=== PATIENT | male | born 1950 | race Caucasian/White ===

== ENCOUNTER → 2018-01-15 07:07 | Outpatient (CLI) | payer MEDICARE, BC, SELFPAY ==
[2018-01-15 10:43] LABS: Anion Gap 6 (5-15); BUN 16 mg/dL (7-18); BUN/Creat Ratio 14.8 RATIO (10-20); Calcium,Total 8.8 mg/dL (8.5-10.1); Chloride 105 mmol/L (98-107); Cholesterol 181 mg/dL (200); Creatinine, Serum 1.08 mg/dL (0.70-1.30); EST Glomerular Filtration Rate 72 mL/min (>60); Est Glom Filt Rate - Afr Amer 88 mL/min (>60); Glucose 83 mg/dL (74-106); High Density Lipoprotein 47 mg/dL; PSA,Total- Diagnostic 0.66 ng/mL (0.0-4.0); Potassium 3.9 mmol/L (3.5-5.1); Sodium Level 139 mmol/L (136-145); Triglycerides 107 mg/dL; Very Low Density Lipoprotein 21 mg/dL (5-40)
== END ==
PROVIDERS: Family Provider Family Medicine; PCP Family Medicine; Visit Provider Family Medicine
DX: C61 Malignant neoplasm of prostate (principal); I10 Essential (primary) hypertension; E78.00 Pure hypercholesterolemia, unspecified
CPT/HCPCS: 36415; 80048; 80061; 84153

== ENCOUNTER → 2018-10-31 17:23 | Outpatient (CLI) | payer MEDICARE, BC, SELFPAY ==
--- NOTE | 2018-10-31 17:41 | MRI_ITS ---
HISTORY:LEFT BICEP TEARinjury while golfing 3 weeks ago, lump anterior mid humerus is suspicious MRI of the left humerus No priors Findings: Technique: Axial T1 and STIR, sagittal T1 and coronal STIR, T1 weighted images were obtained. The study was limited with nonvisualization of the shoulder joint or the elbow joint showing its bicipital and coracoid attachment for the distal insertion on the radial tuberosity Bones: No evidence of an acute fracture. No significant marrow edema Muscles and tendons: There is a complete tear of the long head of the biceps tendon with associated muscle contusion/strain. There is flattening of the proximal tendon within the bicipital groove. I suspect there is a portion of the tendon seen on coronal image 11 series 15 proximally. It is also seen distally on image 15 series 6 coronal with a gap of approximately 9 cm. No additional muscular abnormalities are noted MRI/Upper Ext/No Jt/ wo IMPRESSION: Tear of the long head of the biceps tendon as discussed. Incomplete visualization of the shoulder and elbow There is fluid within the bicipital groove within the tendon sheath as well as a joint effusion at the shoulder joint. at 2049 Reported and signed by: Krista Tracey DO Electronically Signed: Krista Tracey DO at 20:48 EDT Tel , Service support ,
== END ==
PROVIDERS: Family Provider Family Medicine; PCP Family Medicine; Referring Provider Family Medicine; Visit Provider Family Medicine
DX: S46.212A Strain of muscle, fascia and tendon of other parts of biceps, left arm, initial encounter (principal); X58.XXXA Exposure to other specified factors, initial encounter; Y93.9 Activity, unspecified; Y92.9 Unspecified place or not applicable; Y99.9 Unspecified external cause status
CPT/HCPCS: 73218

== ENCOUNTER → 2019-01-24 07:02 | Outpatient (CLI) | payer MEDICARE, BC, SELFPAY ==
[2019-01-24 10:25] LABS: Anion Gap 6 (5-15); BUN 18 mg/dL (7-18); Calcium,Total 8.6 mg/dL (8.5-10.1); Chloride 108 mmol/L (98-107); Cholesterol 164 mg/dL (200); EST Glomerular Filtration Rate 79 mL/min (>60); Est Glom Filt Rate - Afr Amer 95 mL/min (>60); Glucose 85 mg/dL (74-106); High Density Lipoprotein 48 mg/dL; PSA,Total- Diagnostic 0.88 ng/mL (0.0-4.0); Potassium 4.3 mmol/L (3.5-5.1); Sodium Level 142 mmol/L (136-145); Triglycerides 70 mg/dL; Very Low Density Lipoprotein 14 mg/dL (5-40)
== END ==
PROVIDERS: Family Provider Family Medicine; PCP Family Medicine; Referring Provider Family Medicine; Visit Provider Family Medicine
DX: I10 Essential (primary) hypertension (principal); E78.00 Pure hypercholesterolemia, unspecified; C61 Malignant neoplasm of prostate
CPT/HCPCS: 36415; 80048; 80061; 84153

== ENCOUNTER 2019-06-28 07:00 | Outpatient (RCR) | payer MEDICARE, BC, SELFPAY ==
--- NOTE | 2019-05-31 07:54 | HP.PTEVAL_ITS ---
Patient's Visit Information ABAD FLORES is a 69 year old M referred to Physical Therapy by Mack Wynn MD with a diagnosis of L shoulder rot cuff. Date of Evaluation: 05/31/19 Physical Therapist: Siva Lugo PT, ATC - Visit Plan Frequency: 2x /Week Duration: 4-6 Weeks Plan: L shoulder strengthening (rot cuff), scap stab ex's, UBE, and HEP - Subjective Findings: Pt reports he has had L shoulder pain for greater than 15 years. Pt reports he has a compleate tear in his L biceps tendon, and notes this is what he believes has caused his L rotator cuff problem. 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 No L UE tingling or numbness. No sleep difficulty secondary to pain, although he notes it is difficult to find a c omfortable position at times. Pt is R hand dominant. Pt reports he has difficulty with reaching across his body and overhead secondary to pain. No Dx tests recently. 1/10 pain at rest, 10/10 at worst, which is rare. Pt is an avid golfer in the summer. - Pain L Shoulder pain Pain Intensity (Out of 10): 1 Pain Intensity Range: 10 - Objective Neuro: B UE sensation is WNL to light touch. B bicepital reflex= 2/3. ROM: R shoulder flex= 160, abd= 160, ER= 15, IR WNL; L shoulder flex= 150, abd= 150, ER= 40, IR WNL. Palpation: Pt is sore throughout the distribution of the supraspinatus tendon. No obvious deformity present at this time. MMT: B shoulder abd and IR= 5/5. L shoulder flex= 4-/5. B shoulder ER= 3/5. Special tests: Positive empty can test - Goals Goal 1:: Decrease L shoulder pain x 50% to aid with IADL's Goal Time Frame: 4-6 Weeks Goal 2:: Increase L shoulder strength x 1 grade to aid with return to sport without limitation Goal Time Frame: 4-6 Weeks Goal 3:: I with HEP Goal Time Frame: 4-6 Weeks - Rehabilitation Potential Physical Therapy Diagnosis: L shoulder pain, weakness, and limited ROM secondary to L rotator cuff strain. Rehabilitation Potential: Good - Anticipated Interventions Patient/Client Instruction: Educate patient on: Condition, Plan of Care For the Purpose of:: To improve self management Therapeutic Exercise to Include: Strength training, Endurance training, Body mechanics, Active ROM, Scapular Strength/Stabilization For the Purpose of:: To decrease pain, To improve muscle performance and motor function, To increase tolerance to activity/condition/position Cryotherapy (ice pack, ice massage): Yes For the Purpose of:: To decrease pain Thank you for the opportunity to evaluate your patient. For Medicare and Medicare HMO plans, please review the plan of care and approve it. It will need to be FAXED BACK to us at [phone] for Medicare purposes. For Medicare only, by signing this I certify the plan of care. Please let me know if there are questions or concerns regarding this plan of care. Physician Signature: Date:
--- NOTE | 2019-06-28 07:26 | HP.PTDCSUM ---
HP - PT D/C Summary It has been my pleasure to treat ABAD FLORES under orders from Mack Wynn MD, for the diagnosis of L shoulder rot cuff for a total of 9 visit(s). Discharge Date: Please see the following information for a summary of their discharge status. - Subjective Subjective: Pt reports he has definitely made improvements - Pain L Shoulder pain Pain Intensity (Out of 10): 0 - Objective Objective/Function: L shoulder pain 0/10, increases to 3/10 at worst. L shoulder ROM: flex= 165, abd= 155, ER= 45. L shoulder MMT: IR 08/26. All other measurements . Pt is I with HEP - Goals Goal 1:: Decrease L shoulder pain x 50% to aid with IADL's Goal Progress: Goal Met Goal 2:: Increase L shoulder strength x 1 grade to aid with return to sport without limitation Goal Progress: Progressing Goal 3:: I with HEP Goal Progress: Goal Met - Plan Plan: L shoulder strengthening (rot cuff), scap stab ex's, UBE, and HEP - D/C Information If there are questions or concerns regarding this patient's physical therapy, please feel free to call me at [phone]. Thank you for the referral of this patient. Sincerely, Siva Lugo, PT, ATC
== END 2019-06-28 19:00 | disposition home or self-care (01) ==
LOC: PT 07:00
PROVIDERS: PCP Family Medicine; Referring Provider Family Medicine; Visit Provider Family Medicine
DX: S46.012D Strain of muscle(s) and tendon(s) of the rotator cuff of left shoulder, subsequent encounter (principal); S46.212D Strain of muscle, fascia and tendon of other parts of biceps, left arm, subsequent encounter
CPT/HCPCS: 97110; 97161; 97164

== ENCOUNTER → 2019-08-19 07:03 | Outpatient (CLI) | payer MEDICARE, BC, SELFPAY ==
[2019-08-19 10:23] LABS: Cholesterol 123 mg/dL (200); High Density Lipoprotein 47 mg/dL; PSA,Total- Diagnostic 1.14 ng/mL (0.0-4.0); Triglycerides 63 mg/dL; Very Low Density Lipoprotein 13 mg/dL (5-40)
== END ==
PROVIDERS: PCP Family Medicine; Referring Provider Family Medicine; Visit Provider Family Medicine
DX: C61 Malignant neoplasm of prostate (principal); E78.00 Pure hypercholesterolemia, unspecified
CPT/HCPCS: 36415; 80061; 84153

== ENCOUNTER → 2019-08-30 12:41 | Outpatient (CLI) | payer MEDICARE, BC, SELFPAY ==
--- NOTE | 2019-08-30 12:45 | CT_ITS ---
STUDY: CT ABDOMEN AND PELVIS WITH CONTRAST REASON FOR EXAM: Male, 69 years old. PROSTATE CA IN 2004, PROSTATECTOMY, RISING PSA RADIATION DOSAGE (If Supplied By Facility): CTDIvol = ( 14.15 ) mGy, DLP = ( 925.03 ) mGycm TECHNIQUE: Transaxial images were obtained from the dome of the diaphragm to the symphysis pubis without oral contrast. Oral and amp; IV Readi-CAT and amp; 100mL Isovue-300 was administered. Sagittal and coronal images were reconstructed. Individualized dose optimization techniques were used for this CT. COMPARISON: None. FINDINGS: Minimal linear scar at the right lung base. The visualized portions of the heart are within normal limits. There is decreased attenuation of the liver consistent with steatosis. There is a 5.3 mm cyst in the medial aspect of the right lobe of the liver. Tiny cysts are also seen in the inferior aspect of the right lobe of the liver. Normal gallbladder and extrahepatic biliary system. Normal spleen. Normal pancreas. Normal bilateral adrenal glands. Normal right kidney. Normal left kidney. Normal visualized stomach. Normal small intestine. Normal colon. The appendix is visualized and appears normal. There is diffuse atherosclerotic calcification of the abdominal aorta, without a demonstrated aneurysm. Normal inferior vena cava. There is borderline retroperitoneal lymphadenopathy with enlarged nodes no greater than 10mm in the short axis diameter. Normal urinary bladder. The patient is status post prostatectomy. There is a small umbilical hernia containing fat. A mesh is seen in the lower anterior abdomen/pelvic wall from prior hernia repair. There are mild degenerative changes of the visualized lumbar spine. Degenerative changes of the sacroiliac joints bilaterally slightly more prominent on the right side. CT/Abdomen/Pelvis WITH Contrast IMPRESSION: Fatty infiltration liver. Scattered small cysts in the liver. Electronically Signed: Abhijit Dyer, at 13:25 EDT , Service support ,
[2019-08-30 13:01] LABS: CREATININE FINGERSTICK 1.4 mg/dL (0.70-1.30)
== END ==
PROVIDERS: PCP Family Medicine; Referring Provider Urology; Visit Provider Urology
DX: C61 Malignant neoplasm of prostate (principal)
CPT/HCPCS: 74177; Q9967

== ENCOUNTER → 2019-09-04 10:05 | Outpatient (CLI) | payer MEDICARE, BC, SELFPAY ==
--- NOTE | 2019-09-04 10:09 | NM_ITS ---
CLINICAL: 69-year-old male with reported history of carcinoma of the prostate. WHOLE BODY 99m Tc MDP RADIONUCLIDE BONE SCINTIGRAPHY COMPARISON: CT of the abdomen-pelvis report 08/30/2019 FINDINGS: Following the intravenous administration of approximately 25.0 mCi of 99m Tc MDP, whole body bone images reveal: 1. Increased radiopharmaceutical concentration is identified in the mid cervical spine posteriorly on the left and right, lower cervical spine posteriorly on the right, glenohumeral and acromioclavicular compartments of both shoulders, bilateral wrist articulations, right-left knees, both ankles, the right midfoot, the right hip involving the superior acetabulum. 2. The remaining skeletal structures are scintigraphically unremarkable with normal-appearing renal images and urinary bladder activity identified. There is calcification of the bilateral costochondral junction. Increased uptake is defined in the bilateral maxilla and inter-orbital aspect of the calvarium most consistent with periostitis. NM/Bone Scan Whole Body IMPRESSION: 1. The increase in radiopharmaceutical concentration identified in the cervical spine, right-left shoulder and wrist articulations, knees bilaterally, right-left ankles, right midfoot, the right hip is most consistent with degenerative arthritis. 2. There is no definitive typical scintigraphic evidence of diffuse axial skeletal metastatic disease on the current examination. Electronically Signed: Ean Denney DO at 23:00 EDT Tel , Service support ,
== END ==
PROVIDERS: PCP Family Medicine; Referring Provider Urology; Visit Provider Urology
DX: C61 Malignant neoplasm of prostate (principal)
CPT/HCPCS: 78306

== ENCOUNTER → 2020-01-07 07:51 | Outpatient (CLI) | payer MEDICARE, BC, SELFPAY ==
[2020-01-07 10:31] LABS: PSA,Total- Diagnostic 1.48 ng/mL (0.0-4.0)
[2020-01-07 10:40] LABS: AST(SGOT) 12 U/L (15-37); Alanine Aminotransfer ALT/SGPT 25 U/L (16-61); Albumin, Serum 3.8 g/dL (3.2-5.0); Alkaline Phosphatase 63 U/L (45-117); Anion Gap 4 (5-15); BUN 15 mg/dL (7-18); BUN/Creat Ratio 14.9 RATIO (10-20); Calcium,Total 8.8 mg/dL (8.5-10.1); Chloride 104 mmol/L (98-107); Cholesterol 127 mg/dL (200); Creatinine, Serum 1.01 mg/dL (0.70-1.30); EST Glomerular Filtration Rate 78 mL/min (>60); Est Glom Filt Rate - Afr Amer 94 mL/min (>60); Globulin 3.7 g/dL (2.2-4.2); Glucose 93 mg/dL (74-106); High Density Lipoprotein 50 mg/dL; Potassium 3.8 mmol/L (3.5-5.1); Protein, Total 7.5 g/dL (6.4-8.2); Sodium Level 137 mmol/L (136-145); Triglycerides 92 mg/dL; Very Low Density Lipoprotein 18 mg/dL (5-40)
== END ==
LOC: LAB.FUTURE 07:52 → MTLAB 08:01
PROVIDERS: PCP Family Medicine; Referring Provider Urology; Visit Provider Urology
DX: I10 Essential (primary) hypertension (principal); C61 Malignant neoplasm of prostate
CPT/HCPCS: 36415; 80053; 80061; 84153

== ENCOUNTER → 2020-02-11 14:01 | Outpatient (CLI) | payer MEDICARE, BC, SELFPAY ==
--- NOTE | 2020-02-11 13:30 | PET_ITS ---
EXAMINATION: 18F Fluciclovine PET/CT CLINICAL HISTORY: A 70-year-old male with reported history of carcinoma of the prostate presenting for restaging examination. COMPARISON EXAMINATION: Whole body bone scintigraphy report dated 09/04/2019, CT of the abdomen and pelvis report dated 08/30/2019 PROCEDURE: The patient received an intravenous bolus injection of 11.66 mCi of Axumin (fluciclovine F-18) via the right forearm antecubital fossa, on the imaging table with the patient in the supine position followed by an intravenous normal saline flush. The patient in the supine position with arms above the head, CT scan for attenuation correction was performed immediately following the bolus injection and left up for 1-2 minutes. The PET scan acquisition was begun within 3-5 minutes following injection from mid thigh to the base of the skull. The total scan time was registered between 20-30 minutes. Axumin (fluciclovine F-18) injection is indicated for positron emission tomography PET imaging in men with suspected prostate cancer recurrence based on elevation of the serum prostatic surface antigen (PSA) levels following prior treatment intervention. HEIGHT: 69 inches. WEIGHT: 172 lbs. SUV reference values: LIVER BLOOD POOL SUV: 8.7 BLOOD POOL: 1.2 BONE MARROW: 3.4 FINDINGS: Head/Neck: Symmetric radiopharmaceutical concentration is defined in the bilateral pterygoid and masseter musculature consistent with physiologic uptake. CHEST: There is no quantitative scintigraphic evidence of abnormal increased metabolism within the context of the bilateral hemithorax pulmonary parenchyma, right and left hemithoracic pleural interface, mediastinal structures and thoracic perihilum. Linear tracer distribution is defined in the proximal-distal esophagus most consistent with physiologic radiopharmaceutical uptake. There is visualization of the left ventricular myocardium. Pertinent chest CT findings are as follows. There are no parenchymal densities-nodules defined in the right and left hemithorax with discernible increased radiopharmaceutical concentration. Right and left axillary soft tissue densities with fatty hilus are ametabolic. There is atherosclerotic calcification defined in the thoracic aorta without evidence of dilatation-aneurysm formation. Abdomen/Pelvis: Normal physiologic distribution of the radiopharmaceutical is apparent in the hepatic and splenic parenchyma, pancreas, pancreatic head-tail, both renal units, bladder and visualized intestinal tract. Pertinent abdomen and pelvis CT findings are as follows. There is atherosclerotic calcification defined in the abdominal aorta without evidence of dilatation-aneurysm formation. Pelvic arterial calcification is defined. Postsurgical changes are visualized in the mid-lower anterior pelvic wall. The prostate gland appears surgically absent. A small fat containing left inguinal hernia is noted. Right and left inguinal soft tissue densities with fatty hilus formation reveal no evidence of significant increased 18F fluciclovine uptake. Skeletal: Degenerative changes are noted in the cervical, thoracic and lumbar spine. There is evidence of an apparent vertebral hemangioma noted at the level of the fourth thoracic vertebra. PET/PET/CT Tumor Base -Thigh Subs IMPRESSION: 1. NEGATIVE EXAMINATION. There is no definitive quantitative-qualitative visual scintigraphic evidence of fluciclovine avid viable neoplasm. (Keon et al, J Nucl Med Mol Imag 55: 1986, 2014). Electronic Signature Ean Denney D.O. Electronically Signed: Ean Denney DO at 22:35 EDT Tel , Service support ,
== END ==
PROVIDERS: PCP Family Medicine; Referring Provider Radiology Radiation Oncology; Visit Provider Radiology Radiation Oncology
DX: C61 Malignant neoplasm of prostate (principal); R97.20 Elevated prostate specific antigen [PSA]
CPT/HCPCS: 78815; A9552

== ENCOUNTER 2020-02-14 08:49 | Day surgery (SDC) | payer MEDICARE, BC, SELFPAY ==
[2020-02-14 09:17] VITALS: BP 129/80; PULSE 91; RESP 16; TEMP 36.9; O2SAT 97; BMI 24.7
[2020-02-14] MEDS: Lactated Ringers 1,000 ML 100 ML IV (09:38)
[2020-02-14] MEDS: Cefazolin 2 GM in 0.9% Normal Saline 100 ML IV (10:32)
--- NOTE | 2020-02-14 10:32 | PCM.HP.STD ---
History of Present Illness Date of Admission: 02/14/20 Chief Complaint: Recurrent prostate cancer The patient is a 70 year old male with a history of radical prostatectomy in the past he has had biochemical recurrence of disease with rising PSA working to proceed with treatment with salvage radiation therapy plus hormone deprivation therapy for 6 months. Past Medical History Allergies amoxicillin Allergy (Verified 02/14/20 09:16) Rash bee venom protein (honey bee) Allergy (Verified 02/14/20 09:16) Hives lactose Allergy (Verified 02/14/20 09:16) Diarrhea Sulfa (Sulfonamide Antibiotics) Allergy (Verified 02/14/20 09:16) PT UNSURE OF REACTION Home Medications: Ambulatory Orders Medication Instructions Recorded Aspirin E.C. [Ecotrin] 81 mg PO SUWE 02/05/20 Atorvastatin Calcium [Lipitor] 20 mg PO QHS 02/05/20 Lactase [Dairy Digestive] 9,000 unit PO PRN PRN 02/05/20 Lisinopril/Hydrochlorothiazide 1 ea PO DAILY 02/05/20 [Lisinopril-Hctz 10-12.5 mg Tab] Surgical History: no surgical history Smoking Status: Former smoker Tobacco Use: Non-smoker Review of Systems Constitutional: Denies: Chills, Fever, Weight Change HEENT: Denies: Head Aches, Sinus Congestion, Sinus Drainage Cardiovascular: Denies: Chest Pain, Palpitations Respiratory: Denies: Cough, Shortness of breath at rest, Sputum production Gastrointestinal: Denies: Abdominal Pain, Nausea, Vomiting Genitourinary: Denies: Dysuria Musculoskeletal: Denies: Joint Pain, Joint Tenderness Skin: Denies: Rash, Wounds Neurological: Denies: Numbness, Tingling, Focal weakness Psychiatric: Denies: Anxiety, Depression, Homicidal Ideations, Suicidal Ideations Hematologic/ Lymphatic: Denies: Easy Bruising, Easy Bleeding VTE Information - Inpt Only VTE Present on Admission: No - Physical Exam Vitals/I&O's: Vital Signs Temp Pulse Resp BP Pulse Ox 98.5 F 91 16 129/80 H 97 02/14/20 09:17 02/14/20 09:17 02/14/20 09:17 02/14/20 09:17 02/14/20 09:17 Oxygen Delivery Method Room Air Weight: 76 kg Body Mass Index (BMI) 24.7 General: Alert, Oriented x3, Cooperative HEENT: Atraumatic, PERRLA, EOMI, Normocephalic Neck: Supple, No JVD, Negative Carotid Bruits Lungs: Clear to auscultation, Normal air movement Cardiovascular: Regular rate, No murmurs Abdomen: Bowel Sounds Present, Soft, Non Tender Extremities: No edema, Capillary Refill Less than 3 Seconds Skin: No rashes, No breakdown Musculoskeletal: No Tenderness to Palpation of Joints or Extremities Neurological: Cranial nerves II-XII grossly intact Psych/Mental Status: Normal Affect, Appropriate Current Medications Cefazolin Sodium 2 gm/ Sodium (Chloride) 110 mls @ 150 mls/hr IV PREOP ONE Stop: 02/14/20 11:43 Lactated Ringer's () 1,000 mls @ 100 mls/hr IV .Q10H GEOFF Last Admin: 02/14/20 09:38 Dose: 100 mls/hr Documented by: Assessment/Plan 70-year-old male with recurrent prostate cancer plan to proceed with salvage radiation therapy plus hormone therapy he is good to get the gold markers placed today.
--- NOTE | 2020-02-14 10:34 | DCINST_ITS ---
Discharge Diet: Light diet - advance as tolerated Discharge Activity: Return to Normal Activity Allergies/Adverse Reactions: Allergies amoxicillin Allergy (Verified 02/14/20 09:16) Rash bee venom protein (honey bee) Allergy (Verified 02/14/20 09:16) Hives lactose Allergy (Verified 02/14/20 09:16) Diarrhea Sulfa (Sulfonamide Antibiotics) Allergy (Verified 02/14/20 09:16) PT UNSURE OF REACTION Medications to take at Discharge Aspirin E.C. [Ecotrin] 81 mg PO SUWE 02/05/20 Atorvastatin Calcium [Lipitor] 20 mg PO QHS 02/05/20 Lactase [Dairy Digestive] 9,000 unit PO PRN PRN 02/05/20 Lisinopril/Hydrochlorothiazide [Lisinopril-Hctz 10-12.5 mg Tab] 1 ea PO DAILY 02/05/20 Primary Care Physician: Mack Wynn MD [Primary Care Provider] - Test Results: Test results from this visit will be discussed in further detail at your follow- up appointment, if applicable. Please Follow Up With: Eleno Fagan MD When: keep appt for follow up
--- NOTE | 2020-02-14 10:46 | PCM.OPRPT ---
Report of Operation Date of Procedure: 02/14/20 Pre-Operative Diagnosis: Recurrent prostate cancer Post-Operative Diagnosis: Same Surgery/Procedure Performed:: transrectal ultrasound-guided placement of gold fiducial markers Description of Surgical Findings:: 70-year-old male was taken back to the operating room at the smooth induction of anesthesia he was placed in dorsolithotomy position. The perineum and testicles are prepped and draped in usual sterile fashion. Ultrasound probe into the rectum performed ultrasonography. The prostate was missing there is no obvious masses on exam is no palpable masses I then deployed 3 gold markers into the perirectal space 1 on the right side one on the left side and 1 below the bladder in the midline. Once all 3 gold markers were placed for marking the patient was taken position taken back to PACU in good condition he is can proceed with salvage radiation therapy. Type of Anesthesia:: General - Admit VTE Documentation VTE Present on Admission: No VTE Mechan Device Prophylaxis: SCD's
[2020-02-14 10:52] VITALS: BP 129/80; BP 88/61; PULSE 80; RESP 16; TEMP 36.5; O2SAT 94
[2020-02-14 10:55] VITALS: BP 129/80; BP 93/60; PULSE 79; RESP 16; O2SAT 95
[2020-02-14 11:00] VITALS: BP 129/80; BP 96/70; PULSE 77; RESP 16; O2SAT 94
[2020-02-14 11:05] VITALS: BP 129/80; BP 98/73; PULSE 78; RESP 16; TEMP 36.6; O2SAT 93
[2020-02-14 11:49] VITALS: BP 129/80
== END 2020-02-14 11:55 | disposition home or self-care (01) ==
LOC: SDC 08:49 → AC 08:50
PROVIDERS: Anesthesiology; PCP Family Medicine; Referring Provider Urology; Visit Provider Urology
PROC: (CPT 55874; principal; 2020-02-14 10:45)
DX: C61 Malignant neoplasm of prostate (principal); R97.21 Rising PSA following treatment for malignant neoplasm of prostate; I10 Essential (primary) hypertension; E78.00 Pure hypercholesterolemia, unspecified; Z79.82 Long term (current) use of aspirin; Z79.899 Other long term (current) drug therapy; Z87.891 Personal history of nicotine dependence; Z20.828 Contact with and (suspected) exposure to other viral communicable diseases
CPT/HCPCS: 00902; 55876; 76942; 87635; C9803; J7120; J2405; U0003

== ENCOUNTER → 2020-02-27 13:43 | Outpatient (CLI) | payer MEDICARE, BC, SELFPAY ==
[2020-02-14 09:17] VITALS: BMI 24.7
[2020-02-27 15:30] LABS: Absolute Lymphocyte Count 1.62 X10^3/uL (0.83-4.51); Absolute Neutrophil Count 8.2 X10^3/uL (2.0-7.7); Basophil# 0.08 X10^3/uL; Basophil% 0.7 % (0-1); Eosinophil# 0.09 X10^3/uL; Eosinophils% 0.8 % (0-5); Hemoglobin 15.3 g/dL (13.0-16.5); Lymphocyte # 1.62 X10^3/ul (4.0); Lymphocyte % 15.2 % (19-41); Mean Corp Hgb Conc 33.3 g/dL (32-36); Mean Corpuscular Hgb 30.4 pg (27.0-32.0); Mean Corpuscular Volume 91.5 fL (80-94); Monocyte# 0.67 X10^3/uL; Monocyte% 6.3 % (0-10); NRBC Flagged by Analyzer 0 % (0-5); Neutrophil # 8.16 X10^3/uL (2.7-7.7); Neutrophil % 76.4 % (47-70); Platelet Count 339 K/mm3 (150-450); RBC Distribution Width CV 11.6 % (11.6-14.6); RBC Distribution Width SD 39.3 fl (35.1-43.9); Red Blood Count 5.03 M/mm3 (4.6-6.2); White Blood Count 10.7 K/mm3 (4.4-11.0)
[2020-02-27 16:17] LABS: Creatinine, Serum 1.02 mg/dL (0.70-1.30); EST Glomerular Filtration Rate 77 mL/min (>60); Est Glom Filt Rate - Afr Amer 93 mL/min (>60)
== END ==
PROVIDERS: PCP Family Medicine; Referring Provider Radiology Radiation Oncology; Visit Provider Radiology Radiation Oncology
DX: Z01.812 Encounter for preprocedural laboratory examination (principal); C61 Malignant neoplasm of prostate
CPT/HCPCS: 36415; 82565; 85025

== ENCOUNTER → 2020-02-28 12:28 | Outpatient (CLI) | payer MEDICARE, BC, SELFPAY ==
[2020-02-14 09:17] VITALS: BMI 24.7
--- NOTE | 2020-02-28 12:30 | CT_ITS ---
STUDY: CT PELVIS WITH CONTRAST REASON FOR EXAM: Male, 70 years old. Prostate cancer radiation planning. Prior prostate removal, appendectomy, hernia x 3, hypertension. RADIATION DOSAGE (If Supplied By Facility): CTDIvol = ( 24.42 ) mGy, DLP = ( 745.69 ) mGycm TECHNIQUE: Transaxial imaging of the pelvis was performed without oral contrast. Oral and amp; IV READII-CAT and amp; 100ML ISOVUE 300 was administered intravenously. Individualized dose optimization techniques were used for this CT. COMPARISON: Comparison is made with prior study dated 08/30/2019. FINDINGS: Normal urinary bladder. Without radiation seeds are seen within the prostate. Normal visualized small intestine. There are scattered colonic diverticula of the sigmoid colon consistent with chronic diverticulosis. There is no pelvic fluid. There is no pelvic lymphadenopathy or mass lesion. There is diffuse atherosclerotic calcification of the pelvic arteries. Small umbilical hernia containing fat. There is evidence of prior repair of a low anterior abdominal wall hernia. There are diffuse degenerative changes of the visualized lumbar spine. CT/CT Pelvis W/CONT Therapy IMPRESSION: Metallic radiation seeds are seen within the prostate. The remainder of the examination is unchanged. Electronically Signed: Abhijit Dyer, at 14:24 EST , Service support ,
== END ==
PROVIDERS: PCP Family Medicine; Referring Provider Radiology Radiation Oncology; Visit Provider Radiology Radiation Oncology
DX: C61 Malignant neoplasm of prostate (principal)
CPT/HCPCS: 51600; 72193; Q9965; Q9967

== ENCOUNTER → 2020-03-26 09:37 | Outpatient (CLI) | payer MEDICARE, BC, SELFPAY ==
[2020-03-26 12:25] LABS: Absolute Neutrophil Count 4.3 X10^3/uL (2.0-7.7); Basophil# 0.04 X10^3/uL; Basophil% 0.7 % (0-1); Eosinophil# 0.08 X10^3/uL; Eosinophils% 1.4 % (0-5); Hematocrit 44.5 % (40-54); Hemoglobin 15.5 g/dL (13.0-16.5); Lymphocyte % 10.8 % (19-41); Mean Corp Hgb Conc 34.8 g/dL (32-36); Mean Corpuscular Hgb 31.4 pg (27.0-32.0); Mean Corpuscular Volume 90.1 fL (80-94); Mean Platelet Vol. 9.1 fl (6.2-12.0); Monocyte# 0.51 X10^3/uL; Monocyte% 9.2 % (0-10); NRBC Flagged by Analyzer 0 % (0-5); Neutrophil # 4.31 X10^3/uL (2.7-7.7); Neutrophil % 77.5 % (47-70); POSITIVE DIFFERENTIAL YES; Platelet Count 237 K/mm3 (150-450); RBC Distribution Width CV 11.9 % (11.6-14.6); RBC Distribution Width SD 38.6 fl (35.1-43.9); Red Blood Count 4.94 M/mm3 (4.6-6.2); White Blood Count 5.6 K/mm3 (4.4-11.0)
[2020-03-26 12:45] LABS: Differential Indicated SCAN CRITERIA MET
[2020-03-26 13:25] LABS: Differential Comment SCANNED; Platelet Estimate ADEQUATE (ADEQ); Red Cell Morphology NORM C+C NORMAL (NORM C&C)
== END ==
PROVIDERS: PCP Family Medicine; Referring Provider Radiology Radiation Oncology; Visit Provider Radiology Radiation Oncology
DX: C61 Malignant neoplasm of prostate (principal)
CPT/HCPCS: 36415; 85025

== ENCOUNTER → 2020-04-14 09:50 | Outpatient (CLI) | payer MEDICARE, BC, SELFPAY ==
[2020-04-14 12:32] LABS: Absolute Lymphocyte Count 0.26 X10^3/uL (0.83-4.51); Absolute Neutrophil Count 4.4 X10^3/uL (2.0-7.7); Basophil# 0.04 X10^3/uL; Basophil% 0.8 % (0-1); Eosinophil# 0.05 X10^3/uL; Eosinophils% 0.9 % (0-5); Hematocrit 43.2 % (40-54); Hemoglobin 14.6 g/dL (13.0-16.5); Lymphocyte # 0.26 X10^3/ul (4.0); Lymphocyte % 4.9 % (19-41); Mean Corp Hgb Conc 33.8 g/dL (32-36); Mean Corpuscular Hgb 30.4 pg (27.0-32.0); Monocyte# 0.46 X10^3/uL; Monocyte% 8.7 % (0-10); NRBC Flagged by Analyzer 0 % (0-5); Neutrophil # 4.44 X10^3/uL (2.7-7.7); Neutrophil % 83.9 % (47-70); POSITIVE DIFFERENTIAL YES; Platelet Count 272 K/mm3 (150-450); RBC Distribution Width SD 39.8 fl (35.1-43.9); White Blood Count 5.3 K/mm3 (4.4-11.0)
[2020-04-14 12:33] LABS: Differential Indicated SCAN CRITERIA MET
[2020-04-14 13:31] LABS: Differential Comment SCANNED
== END ==
PROVIDERS: PCP Family Medicine; Referring Provider Radiology Radiation Oncology; Visit Provider Radiology Radiation Oncology
DX: C61 Malignant neoplasm of prostate (principal)
CPT/HCPCS: 36415; 85025

== ENCOUNTER 2020-06-22 10:26 | Outpatient (RCR) | payer MEDICARE, BC, SELFPAY | END 2020-06-22 23:59 | LOC: IMMUN 10:26 | PROVIDERS: PCP Family Medicine; Visit Provider Family Medicine | DX: Z23 Encounter for immunization (principal) | CPT/HCPCS: 0011A; 0012A ==

== ENCOUNTER → 2020-08-18 10:00 | Outpatient (CLI) | payer MEDICARE, BC, SELFPAY | PROVIDERS: PCP Family Medicine; Referring Provider Urology; Visit Provider Urology | DX: C61 Malignant neoplasm of prostate (principal) | CPT/HCPCS: 36415; 84153 ==

== ENCOUNTER 2020-09-30 08:47 | Emergency (ER) | payer MEDICARE, BC, SELFPAY ==
[2020-09-30 08:48] VITALS: BP 134/74; PULSE 66; RESP 18; TEMP 35.7; O2SAT 98; BMI 25.2
--- NOTE | 2020-09-30 09:04 | EKG12_ITS ---
Test Reason : DIZZINESS Blood Pressure : / mmHG Vent. Rate : 068 BPM Atrial Rate : 068 BPM P-R Int : 200 ms QRS Dur : 090 ms QT Int : 416 ms P-R-T Axes : 070 065 047 degrees QTc Int : 442 ms Normal sinus rhythm Normal ECG Confirmed by ALLY LA, ASHLYN ([id number]), photography editor JAZIEL PURCELL ([id number]) on 10/02/2020 8:35:20 AM Referred By: JAIME Confirmed By:ASHLYN CANALES MD
--- NOTE | 2020-09-30 09:07 | EX.ED.DYSGE1 ---
HPI History of Present Illness Chief Complaint: Dizziness Detail of Chief Complaint: Sudden onset of dizziness approximately 7:30 AM Informant: patient Narrative Narrative: Patient presents with dizziness that started around 7:30 AM while he was in the office working on the computer. Patient got acutely nauseated and did vomit x1. Patient states that symptoms seem to be improved at this time but worse with standing and also worse with movement of head. No history of vertigo. No falls or head injuries. He denies headache. He denies recent illness. He denies chest pain or shortness of breath. Prior similar symptoms: No PFSH PFSH Medical History (Updated 09/30/20 @ 11:[address] Luciano Beckford, DO) History of prostate cancer Hyperlipemia Hypertension Home Medications aspirin 81 mg PO SUWE 02/05/20 [History Last Taken Unknown] atorvastatin 20 mg PO QHS 02/05/20 [History Last Taken 02/14/20 04:45 20 MG] lisinopril-hydrochlorothiazide 1 tab PO DAILY 09/30/20 [History Last Taken Unknown] meclizine 25 mg PO TID PRN #20 tab 09/30/20 [Rx Last Taken Unknown] Allergy/AdvReac Type Severity Reaction Status Date / Time amoxicillin Allergy Rash Verified 09/30/20 08:47 bee venom protein (honey bee) Allergy Hives Verified 09/30/20 08:47 lactose Allergy Diarrhea Verified 09/30/20 08:47 Sulfa (Sulfonamide Allergy PT UNSURE Verified 09/30/20 08:47 Antibiotics) OF REACTION Surgical History (Updated 09/30/20 @ 09:03 by Riana Betancur) History of hernia repair History of prostatectomy Social History Smoking Status: Former smoker ROS ROS ED Constitutional Constitutional ED: Reports systems reviewed and no addt'l complaints, except as documented; Denies body ache(s), change in weight or chills Eyes Eyes: Denies acute decrease in peripheral vision, change in vision, double vision or loss of vision ENT ENT ED: Reports none; Denies ear pain, lip swelling, loss taste/smell, neck pain, otalgia or sore throat Cardiovascular Cardiovascular: Reports none; Denies abdominal pain, chest pain with activity, leg edema, lightheadedness, palpitations, rapid heart rate or syncope Respiratory/Chest Respiratory/Chest: Reports none; Denies change in mental status, dry cough, dyspnea, hemoptysis, shortness of breath at rest or shortness of breath with exertion Gastrointestinal Gastrointestinal: Reports none, nausea and vomiting; Denies abdominal pain, change in stool character, diarrhea, hematemesis, hematochezia, melena or rectal bleeding Genitourinary Genitourinary ED: Reports none; Denies abdominal discomfort, anuria, dysuria, genital pain or polyuria Musculoskeletal Musculoskeletal: Reports none; Denies arthralgias, back pain, difficulty walking, extremity pain, muscle weakness or myalgias Integumentary Reports none; Denies abscess or rash Neurologic Neurologic: Reports none and other Details: Dizziness ; Denies abnormal gait, confusion, focal weakness, frequent falls, headache(s), loss of vision, numbness, paresthesias, radicular pain, vertigo or weakness Psychiatric Psychiatric: Reports systems reviewed and no addt'l complaints, except as documented and none; Denies behavioral changes, confusion, difficulty concentrating, hallucinations, suicidal ideation, tactile hallucinations or visual hallucinations Endocrine Endocrinology: Denies none, cold intolerance, excessive sweating, fatigue or heat intolerance Hematologic/Lymphatic Hematologic/Lymphatic: Reports none; Denies anemia, easy bleeding or easy bruising Allergic/Immunologic Allergic/Immunologic ED: Denies as per HPI, none, lip swelling, mouth swelling, throat swelling, tongue swelling or hives EXAM Physical Exam Const Vital Signs: 09/30/20 08:48 09/30/20 09:01 09/30/20 09:17 Temperature 96.3 F L Temperature Source Temporal Pulse Rate 66 Pulse Rate [Lying] 63 Pulse Rate [Sitting] 66 Pulse Rate [Standing] 74 Respiratory Rate 18 Respiratory Effort Normal Non-Labored Respiratory Pattern Normal Blood Pressure 134/74 H Blood Pressure [Lying] 130/72 H Blood Pressure [Sitting] 139/74 H Blood Pressure [Standing] 128/85 H Blood Pressure Mean 94 Blood Pressure Mean [Lying] 91 Blood Pressure Mean [Sitting] 95 Blood Pressure Mean [Standing] 99 Pulse Ox 98 Oxygen Delivery Method Room Air Positive well nourished and well developed General Appearance ED: well developed and NAD HEENT Reports TM's clear and moist mucous membranes normocephalic and atraumatic; Negative for trauma or tenderness Tympanic Membrane ED: Yes TM's clear Eyes PERRL and EOMs intact bilaterally General Eye ED: Negative for pale conjunctiva or scleral icterus Neck no lymphadenopathy, supple and no JVD General: Negative for tenderness Chest Wall inspection of chest normal and palpation of chest normal Chest: Negative for tenderness Resp normal respiratory effort and clear to auscultation bilaterally Effort and Inspection: Negative for respiratory distress or pain with movement Auscultation: Negative for rhonchi, wheezes or diminished lung sounds Cardio regular rate, regular rhythm, S1 normal heart sound, S2 normal heart sound and no murmurs Peripheral Pulses: pulses 2+ throughout GI normal to inspection, nondistended, normoactive bowel sounds, soft to palpation, non-tender, non-distended and no masses Back/Spine no CVA tenderness and no thoracic nor lumbar tenderness Extremity normal to inspection General Extremety ED: Negative for edema General Extremity: Negative for edema Neuro oriented x3, CN's II-XII intact bilaterally, no sensory deficits noted and gait normal Neuro Narrative: Hallpike maneuver performed did not elicit any nystagmus. He did feel somewhat symptomatic with sitting up from the supine position. Sensorium / Orientation: awake, alert, oriented to person, oriented to place and oriented to time Motor Exam: strength 5/5 throughout and strength abnormal Psych mental status grossly normal Skin no rashes or lesions noted and no wounds MDM MDM MDM Narrative Medical decision making narrative: I suspect patient likely has benign positional vertigo. His orthostatics were negative. Patient did receive Antivert in the department and had good symptom improvement with that. He was able to ambulate in the department without difficulty. Patient otherwise neurologically intact without evidence of ataxia. Patient and his are leaving for vacation tomorrow and he is advised not to drive. Patient was advised to follow-up with primary care physician in 3 to 5 days but he states he will follow-up when he gets back from his vacation. Lab Data Attestation: I reviewed the patient's lab results. Labs: Laboratory Results - last 24 hr 09/30/20 09/30/20 09/30/20 09:02 09:02 09:43 WBC Cancelled 6.7 Corrected WBC Cancelled RBC Cancelled 4.64 Hgb Cancelled 14.5 Hct Cancelled 42.0 MCV Cancelled 90.5 MCH Cancelled 31.3 MCHC Cancelled 34.5 RDW Std Deviation Cancelled 39.2 RDW Coeff of Teresa Cancelled 11.9 Plt Count Cancelled 218 MPV Cancelled 8.8 Immature Gran % (Auto) Cancelled 0.500 Neut % (Auto) Cancelled 89.0 H Lymph % (Auto) Cancelled 4.2 L Turner % (Auto) Cancelled 4.8 Eos % (Auto) Cancelled 0.9 Baso % (Auto) Cancelled 0.6 Absolute Neuts (auto) Cancelled 5.9 Absolute Lymphs (auto) Cancelled 0.28 L Total Counted Cancelled Neutrophils % (Manual) Cancelled Band Neutrophils % Cancelled Lymphocytes % (Manual) Cancelled Monocytes % (Manual) Cancelled Eosinophils % (Manual) Cancelled Basophils % (Manual) Cancelled Metamyelocytes % Cancelled Myelocytes % Cancelled Promyelocytes % Cancelled Blast Cells % Cancelled Plasma Cell % (Manual) Cancelled Other Cells % Cancelled Nucleated RBC % Cancelled 0 Nucleated RBCs/100 WBC Cancelled Differential Comment Cancelled Diff Path Review Cancelled Hypersegmented Neuts Cancelled Atypical Lymphocytes Cancelled Reactive Lymphocytes Cancelled Smudge Cells Cancelled Toxic Granulation Cancelled Toxic Vacuolation Cancelled Dohle Bodies Cancelled Raheel Rods Cancelled Platelet Estimate Cancelled Plt Morphology Comment Cancelled RBC Morphology Cancelled Polychromasia Cancelled Hypochromasia Cancelled Poikilocytosis Cancelled Basophilic Stippling Cancelled Anisocytosis Cancelled Microcytosis Cancelled Macrocytosis Cancelled Spherocytes Cancelled Sickle Cells Cancelled Target Cells Cancelled Tear Drop Cells Cancelled Ovalocytes Cancelled Stomatocytes Cancelled Roy-[place]urora Bodies Cancelled Angelina Cells Cancelled Bite Cells Cancelled Crenated Cell Cancelled Acanthocytes (Spur) Cancelled Rouleaux Cancelled Schistocytes Cancelled Sodium Cancelled Potassium Cancelled Chloride Cancelled Carbon Dioxide Cancelled Anion Gap Cancelled BUN Cancelled Creatinine Cancelled Estim Creat Clear Calc Cancelled Est GFR (MDRD) Af Amer Cancelled Est GFR (MDRD) Non-Af Cancelled BUN/Creatinine Ratio Cancelled Glucose Cancelled Calcium Cancelled Troponin I Cancelled 09/30/20 09:43 WBC Corrected WBC RBC Hgb Hct MCV MCH MCHC RDW Std Deviation RDW Coeff of Teresa Plt Count MPV Immature Gran % (Auto) Neut % (Auto) Lymph % (Auto) Turner % (Auto) Eos % (Auto) Baso % (Auto) Absolute Neuts (auto) Absolute Lymphs (auto) Total Counted Neutrophils % (Manual) Band Neutrophils % Lymphocytes % (Manual) Monocytes % (Manual) Eosinophils % (Manual) Basophils % (Manual) Metamyelocytes % Myelocytes % Promyelocytes % Blast Cells % Plasma Cell % (Manual) Other Cells % Nucleated RBC % Nucleated RBCs/100 WBC Differential Comment Diff Path Review Hypersegmented Neuts Atypical Lymphocytes Reactive Lymphocytes Smudge Cells Toxic Granulation Toxic Vacuolation Dohle Bodies Raheel Rods Platelet Estimate Plt Morphology Comment RBC Morphology Polychromasia Hypochromasia Poikilocytosis Basophilic Stippling Anisocytosis Microcytosis Macrocytosis Spherocytes Sickle Cells Target Cells Tear Drop Cells Ovalocytes Stomatocytes Roy-[place]ora Bodies [place] Cells Bite Cells Crenated Cell Acanthocytes (Spur) Rouleaux Schistocytes Sodium 137 Potassium 3.5 Chloride 104 Carbon Dioxide 28.0 Anion Gap 5 BUN 15 Creatinine 0.99 Estim Creat Clear Calc 69.43 Est GFR (MDRD) Af Amer 96 Est GFR (MDRD) Non-Af 80 BUN/Creatinine Ratio 15.2 Glucose 116 H Calcium 8.7 Troponin I < 0.015 EKG Initial EKG: Comments: Sinus rhythm with a ventricular rate of 68 bpm with no acute ST segment changes Discharge Plan Triage Chief Complaint: Dizziness ED Provider: Luciano Beckford Dx/Rx/DC Orders Clinical Impression: Benign paroxysmal positional vertigo Instructions: ED BPV Vertigo Prescriptions: New meclizine 25 mg tablet 25 mg PO TID PRN (Reason: dizziness) Qty: 20 RF: 0 No Action atorvastatin 20 MG tablet 20 mg PO QHS RF: 0 aspirin 81 MG tablet 81 mg PO SUWE RF: 0 lisinopril-hydrochlorothiazide 10-12.5 mg Tablet 1 tab PO DAILY RF: 0 Primary Care Provider: Mack Wynn Referrals: Mack Wynn MD [Primary Care Provider] - 5-7 Days Disposition Disposition: Home, self care
[2020-09-30] MEDS: Meclizine HCl 25 MG Tablet PO (09:13)
[2020-09-30] MEDS: Ondansetron 4 MG/2 ML Vial IV (09:13)
[2020-09-30 09:17] VITALS: BP 128/85; BP 130/72; BP 139/74; PULSE 63; PULSE 66; PULSE 74
--- NOTE | 2020-09-30 09:33 | NURSING ---
CBCD AND GREEN TOP NEEDS REDRAWN
[2020-09-30 09:36] VITALS: BMI 25.8
[2020-09-30 09:57] LABS: Absolute Lymphocyte Count 0.28 X10^3/uL (0.83-4.51); Absolute Neutrophil Count 5.9 X10^3/uL (2.0-7.7); Basophil# 0.04 X10^3/uL; Basophil% 0.6 % (0-1); Eosinophil# 0.06 X10^3/uL; Eosinophils% 0.9 % (0-5); Hemoglobin 14.5 g/dL (13.0-16.5); Lymphocyte # 0.28 X10^3/ul (0.83-4.51); Lymphocyte % 4.2 % (19-41); Mean Corp Hgb Conc 34.5 g/dL (32-36); Mean Corpuscular Hgb 31.3 pg (27.0-32.0); Mean Corpuscular Volume 90.5 fL (80-94); Mean Platelet Vol. 8.8 fl (6.2-12.0); Monocyte# 0.32 X10^3/uL; Monocyte% 4.8 % (0-10); NRBC Flagged by Analyzer 0 % (0-5); Neutrophil # 5.93 X10^3/uL (2.7-7.7); POSITIVE DIFFERENTIAL YES; Platelet Count 218 K/mm3 (150-450); RBC Distribution Width CV 11.9 % (11.6-14.6); RBC Distribution Width SD 39.2 fl (35.1-43.9); Red Blood Count 4.64 M/mm3 (4.6-6.2); White Blood Count 6.7 K/mm3 (4.4-11.0)
[2020-09-30 09:59] LABS: Differential Indicated SCAN CRITERIA MET
[2020-09-30 10:08] LABS: Anion Gap 5 (5-15); BUN 15 mg/dL (7-18); BUN/Creat Ratio 15.2 RATIO (10-20); Calcium,Total 8.7 mg/dL (8.5-10.1); Chloride 104 mmol/L (98-107); Creatinine, Serum 0.99 mg/dL (0.70-1.30); EST Glomerular Filtration Rate 80 mL/min (>60); Est Glom Filt Rate - Afr Amer 96 mL/min (>60); Estimated Creatinine Clearance 69.43 ml/min; Glucose 116 mg/dL (74-106); Potassium 3.5 mmol/L (3.5-5.1); Sodium Level 137 mmol/L (136-145)
[2020-09-30 11:14] VITALS: BP 129/74; PULSE 61; RESP 16; O2SAT 98
== END 2020-09-30 11:14 | disposition home or self-care (01) ==
PROVIDERS: Emergency Provider Emergency Medicine; PCP Family Medicine
DX: H81.10 Benign paroxysmal vertigo, unspecified ear (principal); E78.5 Hyperlipidemia, unspecified; I10 Essential (primary) hypertension; Z79.899 Other long term (current) drug therapy; Z87.891 Personal history of nicotine dependence
CPT/HCPCS: 36415; 80048; 84484; 85025; 93005; 96374; 99285; A4216; J2405

== ENCOUNTER → 2021-02-09 07:06 | Outpatient (CLI) | payer MEDICARE, BC, SELFPAY ==
[2021-02-09 10:35] LABS: AST(SGOT) 19 U/L (15-37); Alanine Aminotransfer ALT/SGPT 39 U/L (16-61); Albumin, Serum 3.8 g/dL (3.2-5.0); Alkaline Phosphatase 69 U/L (45-117); Anion Gap 8 (5-15); BUN 20 mg/dL (7-18); Calcium,Total 8.8 mg/dL (8.5-10.1); Chloride 102 mmol/L (98-107); Cholesterol 134 mg/dL (200); EST Glomerular Filtration Rate 78 mL/min (>60); Est Glom Filt Rate - Afr Amer 95 mL/min (>60); Globulin 3.9 g/dL (2.2-4.2); Glucose 90 mg/dL (74-106); High Density Lipoprotein 50 mg/dL; PSA,Total- Diagnostic < 0.01 ng/mL (0.0-4.0); Potassium 3.9 mmol/L (3.5-5.1); Protein, Total 7.7 g/dL (6.4-8.2); Sodium Level 138 mmol/L (136-145); Triglycerides 72 mg/dL; Very Low Density Lipoprotein 14 mg/dL (5-40)
== END ==
PROVIDERS: PCP Family Medicine; Referring Provider Family Medicine; Visit Provider Family Medicine
DX: C61 Malignant neoplasm of prostate (principal); E78.00 Pure hypercholesterolemia, unspecified
CPT/HCPCS: 36415; 80053; 80061; 84153

== ENCOUNTER → 2021-04-28 08:43 | Outpatient (CLI) | payer MEDICARE, BC, SELFPAY ==
[2021-04-28 10:15] LABS: Absolute Lymphocyte Count 0.56 X10^3/uL (0.83-4.51); Absolute Neutrophil Count 4.7 X10^3/uL (2.0-7.7); Basophil# 0.04 X10^3/uL; Basophil% 0.7 % (0-1); Eosinophil# 0.08 X10^3/uL; Eosinophils% 1.4 % (0-5); Hemoglobin 15.6 g/dL (13.0-16.5); Lymphocyte # 0.56 X10^3/ul (0.83-4.51); Lymphocyte % 9.8 % (19-41); Mean Corp Hgb Conc 33.9 g/dL (32-36); Mean Corpuscular Hgb 31.1 pg (27.0-32.0); Mean Corpuscular Volume 91.6 fL (80-94); Monocyte# 0.37 X10^3/uL; Monocyte% 6.5 % (0-10); NRBC Flagged by Analyzer 0 % (0-5); Neutrophil # 4.65 X10^3/uL (2.7-7.7); Neutrophil % 81.1 % (47-70); POSITIVE DIFFERENTIAL YES; Platelet Count 318 K/mm3 (150-450); RBC Distribution Width CV 11.7 % (11.6-14.6); RBC Distribution Width SD 39.1 fl (35.1-43.9); Red Blood Count 5.02 M/mm3 (4.6-6.2); White Blood Count 5.7 K/mm3 (4.4-11.0)
[2021-04-28 10:17] LABS: Differential Indicated SCAN CRITERIA MET
[2021-04-28 10:31] LABS: AST(SGOT) 16 U/L (15-37); Alanine Aminotransfer ALT/SGPT 35 U/L (16-61)
== END ==
PROVIDERS: PCP Family Medicine; Referring Provider Dermatology; Visit Provider Dermatology
DX: B35.1 Tinea unguium (principal); Z08 Encounter for follow-up examination after completed treatment for malignant neoplasm; Z85.820 Personal history of malignant melanoma of skin; D18.01 Hemangioma of skin and subcutaneous tissue; L57.0 Actinic keratosis; D22.5 Melanocytic nevi of trunk; L82.1 Other seborrheic keratosis; L57.8 Other skin changes due to chronic exposure to nonionizing radiation
CPT/HCPCS: 36415; 84450; 84460; 85025

== ENCOUNTER → 2021-08-10 | Outpatient (CLI) | payer MEDICARE, BC, SELFPAY ==
[2021-08-10 10:09] LABS: PSA,Total- Diagnostic < 0.01 ng/mL (0.0-4.0)
[2021-08-10 10:11] LABS: AST(SGOT) 14 U/L (15-37); Alanine Aminotransfer ALT/SGPT 29 U/L (16-61); Albumin, Serum 3.8 g/dL (3.2-5.0); Alkaline Phosphatase 71 U/L (45-117); Anion Gap 5 (5-15); BUN 15 mg/dL (7-18); BUN/Creat Ratio 14.3 RATIO (10-20); Calcium,Total 8.7 mg/dL (8.5-10.1); Chloride 104 mmol/L (98-107); Cholesterol 137 mg/dL (200); Creatinine, Serum 1.05 mg/dL (0.70-1.30); EST Glomerular Filtration Rate 74 mL/min (>60); Est Glom Filt Rate - Afr Amer 89 mL/min (>60); Globulin 3.7 g/dL (2.2-4.2); Glucose 91 mg/dL (74-106); High Density Lipoprotein 46 mg/dL; Protein, Total 7.5 g/dL (6.4-8.2); Sodium Level 138 mmol/L (136-145); Triglycerides 94 mg/dL; Very Low Density Lipoprotein 19 mg/dL (5-40)
[2021-08-10 10:36] LABS: Microalbumin:Creatinine Ratio 14.5 mg/g CRE (<30 mg/g CRE)
== END | disposition home or self-care (01) ==
LOC: MTLAB 07:49
PROVIDERS: PCP Family Medicine; Referring Provider Urology; Visit Provider Urology
DX: C61 Malignant neoplasm of prostate (principal); I10 Essential (primary) hypertension
CPT/HCPCS: 36415; 80053; 80061; 82043; 82570; 84153

== ENCOUNTER → 2021-09-07 | Outpatient (CLI) | payer MEDICARE, BC, SELFPAY ==
[2021-09-07 09:55] LABS: Absolute Lymphocyte Count 0.51 X10^3/uL (0.83-4.51); Absolute Neutrophil Count 2.6 X10^3/uL (2.0-7.7); Basophil# 0.05 X10^3/uL; Basophil% 1.4 % (0-1); Eosinophil# 0.06 X10^3/uL; Eosinophils% 1.7 % (0-5); Hematocrit 41.5 % (40-54); Hemoglobin 14.4 g/dL (13.0-16.5); Lymphocyte # 0.51 X10^3/ul (0.83-4.51); Lymphocyte % 14.2 % (19-41); Mean Corp Hgb Conc 34.7 g/dL (32-36); Mean Corpuscular Hgb 31.9 pg (27.0-32.0); Mean Platelet Vol. 9.2 fl (6.2-12.0); Monocyte# 0.33 X10^3/uL; Monocyte% 9.2 % (0-10); NRBC Flagged by Analyzer 0 % (0-5); Neutrophil # 2.63 X10^3/uL (2.7-7.7); Neutrophil % 72.9 % (47-70); POSITIVE DIFFERENTIAL YES; Platelet Count 267 K/mm3 (150-450); RBC Distribution Width CV 11.9 % (11.6-14.6); RBC Distribution Width SD 39.8 fl (35.1-43.9); Red Blood Count 4.51 M/mm3 (4.6-6.2); White Blood Count 3.6 K/mm3 (4.4-11.0)
[2021-09-07 09:56] LABS: Differential Indicated SCAN CRITERIA MET
[2021-09-07 10:23] LABS: AST(SGOT) 15 U/L (15-37); Alanine Aminotransfer ALT/SGPT 26 U/L (16-61)
[2021-09-07 10:56] LABS: Differential Comment SCANNED
[2021-09-09 09:28] LABS: Pathologist Review Reviewed
== END | disposition home or self-care (01) ==
LOC: MTLAB 08:51
PROVIDERS: PCP Family Medicine; Referring Provider Dermatology; Visit Provider Dermatology
DX: D48.5 Neoplasm of uncertain behavior of skin (principal); L57.0 Actinic keratosis; B35.1 Tinea unguium; L82.1 Other seborrheic keratosis; D18.01 Hemangioma of skin and subcutaneous tissue; L57.8 Other skin changes due to chronic exposure to nonionizing radiation; Z08 Encounter for follow-up examination after completed treatment for malignant neoplasm; Z85.820 Personal history of malignant melanoma of skin; Z71.89 Other specified counseling
CPT/HCPCS: 36415; 84450; 84460; 85025

== ENCOUNTER → 2021-11-02 | Outpatient (CLI) | payer MEDICARE, BC, SELFPAY ==
[2021-11-02 10:29] LABS: Absolute Lymphocyte Count 0.72 X10^3/uL (0.83-4.51); Absolute Neutrophil Count 4.5 X10^3/uL (2.0-7.7); Basophil# 0.06 X10^3/uL; Eosinophil# 0.11 X10^3/uL; Eosinophils% 1.9 % (0-5); Hematocrit 43.4 % (40-54); Hemoglobin 14.7 g/dL (13.0-16.5); Lymphocyte # 0.72 X10^3/ul (0.83-4.51); Lymphocyte % 12.4 % (19-41); Mean Corp Hgb Conc 33.9 g/dL (32-36); Mean Corpuscular Hgb 31.7 pg (27.0-32.0); Mean Corpuscular Volume 93.7 fL (80-94); Mean Platelet Vol. 9.2 fl (6.2-12.0); Monocyte# 0.43 X10^3/uL; Monocyte% 7.4 % (0-10); NRBC Flagged by Analyzer 0 % (0-5); Neutrophil # 4.45 X10^3/uL (2.7-7.7); Platelet Count 296 K/mm3 (150-450); RBC Distribution Width SD 41.5 fl (35.1-43.9); Red Blood Count 4.63 M/mm3 (4.6-6.2); White Blood Count 5.8 K/mm3 (4.4-11.0)
[2021-11-02 11:06] LABS: AST(SGOT) 16 U/L (15-37); Alanine Aminotransfer ALT/SGPT 25 U/L (16-61)
== END | disposition home or self-care (01) ==
LOC: MTLAB 07:52
PROVIDERS: PCP Family Medicine; Referring Provider Dermatology; Visit Provider Dermatology
DX: B35.1 Tinea unguium (principal); D48.5 Neoplasm of uncertain behavior of skin; L57.0 Actinic keratosis; D22.5 Melanocytic nevi of trunk; L82.1 Other seborrheic keratosis; L57.8 Other skin changes due to chronic exposure to nonionizing radiation; Z71.89 Other specified counseling; Z08 Encounter for follow-up examination after completed treatment for malignant neoplasm; Z85.820 Personal history of malignant melanoma of skin
CPT/HCPCS: 36415; 84450; 84460; 85025

== ENCOUNTER 2022-02-01 08:00 | Outpatient (RCR) | payer MEDICARE, BC, SELFPAY ==
--- NOTE | 2021-11-18 07:51 | HP.PTEVAL_ITS ---
Patient's Visit Information ABAD FLORES is a 71 year old M referred to Physical Therapy by Dr. Deacon Ovalle MD with a diagnosis of Left Shoulder/Deltoic Strain- hx of biceps long head tear. Date of Evaluation: 11/18/21 Physical Therapist: Giana Medina DPT - Visit Plan Frequency: 2-3x /Week Duration: 4 Weeks Plan: Left Shoulder- focus on scapular s/s and RTC strengthening. HEP Given IE: Postural education, cane seated flexion/abd/ER - Subjective Patient reports that he was diagnosed with a strain- Left side- but uses his left hand a lot- started out gradually and has continued to get worse. After he got out of the shower he had bruising along the biceps. Pain is located in the bicipital groove and into the deltoid. No radiating pain. A week ago he wore a shoulder brace and golfed and did okay, he tried again and it bothered him to drive. Right hand dominate. Agg: lifting. Worst: 10/10- just a quick motion- then it goes away quickly. Eases: close to his body. Best: 0/10. Describes the pain as dull and achy with slow movements- rarely he will have a sharp pain. Sleep: not disturbed. No x-rays or MRI. No N/T in the hands. No increase in BUTLER, blurred vision ot dizziness. Took Meloxicam for 2 weeks and had him doing some exercises. Range of motion exercises were not so bad but adding weight was painful. Patient golfs 2x a week but has not golfed this week. 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 About a year ago tore his long head of the biceps. PMHx: HTN, Skin Cancer, Prostate Cancer 2004 Meds: lysinopril and HCT, statin - Objective Posture: FH, RS can correct but does not maintain. Gait: no deviation noted good arm swing and trunk rotation- no guarding of the left UE. Palpation: tender along bicipital groove. PROM: WFL in all planes AROM: Shoulder flexion: 60 degrees, Abd: 70 degrees, IR: equal ER: neutral- discomfort with supination. Strength: Scap: fair minus mild winging. 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 - Balance/Special Test Scores Quick DASH Score: 15.0000 - Goals Goal 1:: Patient will be I with HEP and progression Goal Time Frame: 4-6 Weeks Goal 2:: Patient will demo full AROM of the left shoulder Goal Time Frame: 4-6 Weeks Goal 3:: Patient will maintain proper posture t/o tx session to demo increased scap s/s Goal Time Frame: 4-6 Weeks Goal 4:: Patient will report 80% improvement Goal Time Frame: 4-6 Weeks - Rehabilitation Potential Physical Therapy Diagnosis: Patient presents with hypomobility- he has decreased ROM, UE and scapular s/s and muscular endurance leading to poor posture and increased pain with ADL's. Rehabilitation Potential: Good - Anticipated Interventions Patient/Client Instruction: Educate patient on: Benefits of Fitness Program Therapeutic Exercise to Include: Strength training, Power training, Coordination, Body mechanics, Postural training, Flexibilty training, Neuromotor development, Passive ROM, Active ROM, Dynamic Lumbar Stabilization, Scapular Strength/Stabilization For the Purpose of:: To improve muscle performance and motor function TENS: Yes Cryotherapy (ice pack, ice massage): Yes Thermo therapy (hot pack): Yes Thank you for the opportunity to evaluate your patient. For Medicare and Medicare HMO plans, please review the plan of care and approve it. It will need to be FAXED BACK to us at [phone] for Medicare purposes. For Medicare only, by signing this I certify the plan of care. Please let me know if there are questions or concerns regarding this plan of care. Physician Signature: Date:
--- NOTE | 2021-12-17 08:13 | HP.PTREVAL ---
Dr. Deacon Ovalle MD, It has been my pleasure to treat ABAD FLORES over the last 9 visits for Left Shoulder/Deltoic Strain- hx of biceps long head tear. Please see the progress note below for an update on the physical therapy plan of care! Subjective: Patient reports that he is doing amazing well. He doesn't feel like its there yet but much better. Some days his arm goes over his head and others he can't. He can reach across without discomfort. He is back to [facility] without issues and wears a shoulder brace. The brace is a little uncomfortable. 50% back to normal. He feels that he would like to continue PT. Objective/Function: Posture: improved- fair throughout. Gait: no deviation noted good arm swing and trunk rotation- no guarding of the left UE. Palpation: not tender to touch. PROM: WFL in all planes AROM: Shoulder flexion: 90 degrees, Abd: 90 degrees, IR: equal ER: neutral. Strength: Scap: fair mild winging. 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 Plan Plan: 12/17/21: Continue 2x a week for 4 weeks for continued RTC Strengthening. Left Shoulder- focus on scapular s/s and RTC strengthening. Balance/Gait/Functional tests - Balance/Special Test Scores Quick DASH Score: 9.0900 Goals Goal 1:: Patient will be I with HEP and progression Goal Time Frame: 4-6 Weeks Goal 2:: Patient will demo full AROM of the left shoulder Goal Time Frame: 4-6 Weeks Goal 3:: Patient will maintain proper posture t/o tx session to demo increased scap s/s Goal Time Frame: 4-6 Weeks Goal 4:: Patient will report 80% improvement Goal Time Frame: 4-6 Weeks Anticipated Interventions Patient/Client Instruction: Educate patient on: Benefits of Fitness Program Therapeutic Exercise to Include: Strength training, Power training, Coordination, Body mechanics, Postural training, Flexibilty training, Neuromotor development, Passive ROM, Active ROM, Dynamic Lumbar Stabilization, Scapular Strength/Stabilization For the Purpose of:: To improve muscle performance and motor function TENS: Yes Cryotherapy (ice pack, ice massage): Yes Thermo therapy (hot pack): Yes Please do not hesitate to contact me at [phone] by phone or if you have questions or concerns regarding this new plan of care! Sincerely, BLAS MorganT
--- NOTE | 2022-03-24 07:54 | HP.PT.NRP ---
ABAD FLORES was seen in my office for initial evaluation on 11/18/21. The following Plan of Care was established for this patient: Initial Frequency: 2-3x /Week Initial Duration: 4 Weeks Patient/Client Instruction: Educate patient on: Benefits of Fitness Program Therapeutic Exercise to Include: Strength training, Power training, Coordination, Body mechanics, Postural training, Flexibilty training, Neuromotor development, Passive ROM, Active ROM, Dynamic Lumbar Stabilization, Scapular Strength/Stabilization For the Purpose of:: To improve muscle performance and motor function TENS: Yes Cryotherapy (ice pack, ice massage): Yes Thermo therapy (hot pack): Yes This patient was last seen in our office . Pertinent comments regarding their Physical therapy will appear below: Patient has not attended physical therapy in over 30 days- at this time d/c is appropriate and return to the MD for further evaluation as needed At this point I will be discontinuing this patient from physical therapy. I would be happy to see this patient again in the future if found appropriate by the physician. Thank you! Giana Medina, BLAST Balance/Gait/Functional tests - Balance/Special Test Scores Quick DASH Score: 4.5450
== END 2022-02-01 19:00 | disposition home or self-care (01) ==
LOC: PT 08:00
PROVIDERS: PCP Family Medicine; Referring Provider Family Medicine; Visit Provider Family Medicine
DX: S46.912D Strain of unspecified muscle, fascia and tendon at shoulder and upper arm level, left arm, subsequent encounter (principal); X58.XXXD Exposure to other specified factors, subsequent encounter; Z87.828 Personal history of other (healed) physical injury and trauma
CPT/HCPCS: 97110; 97161; 97164; 97530

== ENCOUNTER → 2022-02-08 | Outpatient (CLI) | payer MEDICARE, BC, SELFPAY ==
[2022-02-08 12:38] LABS: Absolute Neutrophil Count 4.4 X10^3/uL (2.0-7.7); Basophil# 0.05 X10^3/uL; Basophil% 0.9 % (0-1); Eosinophil# 0.04 X10^3/uL; Eosinophils% 0.7 % (0-5); Hematocrit 44.2 % (40-54); Lymphocyte % 12.5 % (19-41); Mean Corp Hgb Conc 33.9 g/dL (32-36); Mean Corpuscular Hgb 32.1 pg (27.0-32.0); Mean Corpuscular Volume 94.4 fL (80-94); Mean Platelet Vol. 9.3 fl (6.2-12.0); Monocyte# 0.37 X10^3/uL; Monocyte% 6.6 % (0-10); NRBC Flagged by Analyzer 0 % (0-5); Neutrophil # 4.41 X10^3/uL (2.7-7.7); Neutrophil % 78.8 % (47-70); Platelet Count 324 K/mm3 (150-450); RBC Distribution Width SD 41.4 fl (35.1-43.9); Red Blood Count 4.68 M/mm3 (4.6-6.2); White Blood Count 5.6 K/mm3 (4.4-11.0)
[2022-02-08 12:50] LABS: AST(SGOT) 9 U/L (15-37); Alanine Aminotransfer ALT/SGPT 21 U/L (16-61)
[2022-02-08 12:58] LABS: Anion Gap 6 (5-15); BUN 18 mg/dL (7-18); BUN/Creat Ratio 13.6 RATIO (10-20); Calcium,Total 9.1 mg/dL (8.5-10.1); Chloride 104 mmol/L (98-107); Creatinine, Serum 1.32 mg/dL (0.70-1.30); EST Glomerular Filtration Rate 57 mL/min (>60); Est Glom Filt Rate - Afr Amer 69 mL/min (>60); Glucose 94 mg/dL (74-106); Potassium 4.2 mmol/L (3.5-5.1); Sodium Level 139 mmol/L (136-145)
[2022-02-08 13:15] LABS: PSA,Total- Diagnostic < 0.01 ng/mL (0.0-4.0)
== END | disposition home or self-care (01) ==
LOC: MTLAB 10:11
PROVIDERS: Dermatology; Registered Nurse; PCP Family Medicine; Referring Provider Family Medicine; Visit Provider Family Medicine
DX: C61 Malignant neoplasm of prostate (principal); I10 Essential (primary) hypertension; B35.1 Tinea unguium
CPT/HCPCS: 36415; 80048; 84153; 84450; 84460; 85025

== ENCOUNTER → 2022-03-09 | Outpatient (CLI) | payer MEDICARE, BC, SELFPAY ==
[2022-03-09 12:55] LABS: AST(SGOT) 13 U/L (15-37); Alanine Aminotransfer ALT/SGPT 28 U/L (16-61)
== END | disposition home or self-care (01) ==
LOC: MTLAB 10:55
PROVIDERS: PCP Family Medicine; Referring Provider Dermatology; Visit Provider Dermatology
DX: Z79.899 Other long term (current) drug therapy (principal)
CPT/HCPCS: 36415; 84450; 84460

== ENCOUNTER → 2022-06-14 | Outpatient (CLI) | payer MEDICARE, OTHER, SELFPAY ==
[2022-06-14 12:31] LABS: AST(SGOT) 15 U/L (15-37); Alanine Aminotransfer ALT/SGPT 27 U/L (16-61)
== END | disposition home or self-care (01) ==
PROVIDERS: PCP Family Medicine; Referring Provider Dermatology; Visit Provider Dermatology
DX: Z79.899 Other long term (current) drug therapy (principal); L57.0 Actinic keratosis; B35.1 Tinea unguium; D22.5 Melanocytic nevi of trunk; L82.1 Other seborrheic keratosis; L57.8 Other skin changes due to chronic exposure to nonionizing radiation; Z71.89 Other specified counseling; Z85.820 Personal history of malignant melanoma of skin
CPT/HCPCS: 36415; 84450; 84460

== ENCOUNTER → 2022-07-14 | Outpatient (CLI) | payer MEDICARE, OTHER, SELFPAY ==
[2022-07-14 13:07] LABS: Microalbumin,Random Urine 7.4 mg/L (NO RANGE EST.)
[2022-07-14 13:13] LABS: ALB/GLOB Ratio 1.2 RATIO (0.9-2.4); AST(SGOT) 19 U/L (15-37); Alanine Aminotransfer ALT/SGPT 27 U/L (16-61); Albumin, Serum 3.9 g/dL (3.2-5.0); Alkaline Phosphatase 66 U/L (45-117); Anion Gap 8 (5-15); BUN 20 mg/dL (7-18); BUN/Creat Ratio 19.4 RATIO (10-20); Chloride 103 mmol/L (98-107); Creatinine, Serum 1.03 mg/dL (0.70-1.30); EST Glomerular Filtration Rate 75 mL/min (>60); Est Glom Filt Rate - Afr Amer 91 mL/min (>60); Globulin 3.2 g/dL (2.2-4.2); Glucose 98 mg/dL (74-106); Potassium 4.3 mmol/L (3.5-5.1); Protein, Total 7.1 g/dL (6.4-8.2); Sodium Level 138 mmol/L (136-145)
== END | disposition home or self-care (01) ==
LOC: MTLAB 10:25
PROVIDERS: PCP Family Medicine; Referring Provider Family Medicine; Visit Provider Family Medicine
DX: I10 Essential (primary) hypertension (principal)
CPT/HCPCS: 36415; 80053; 82043; 82570

== ENCOUNTER → 2023-01-10 | Outpatient (CLI) | payer MEDICARE, OTHER, SELFPAY ==
[2023-01-10 11:38] LABS: ALB/GLOB Ratio 1.1 RATIO (0.9-2.4); AST(SGOT) 13 U/L (15-37); Alanine Aminotransfer ALT/SGPT 25 U/L (16-61); Albumin, Serum 3.7 g/dL (3.2-5.0); Alkaline Phosphatase 71 U/L (45-117); Anion Gap 4 (5-15); BUN 14 mg/dL (7-18); BUN/Creat Ratio 13.2 RATIO (10-20); Calcium,Total 8.8 mg/dL (8.5-10.1); Chloride 106 mmol/L (98-107); Cholesterol 115 mg/dL (200); Creatinine, Serum 1.06 mg/dL (0.70-1.30); EST Glomerular Filtration Rate 73 mL/min (>60); Est Glom Filt Rate - Afr Amer 88 mL/min (>60); Globulin 3.3 g/dL (2.2-4.2); Glucose 89 mg/dL (74-106); High Density Lipoprotein 44 mg/dL; Magnesium 2.3 mg/dL (1.6-2.6); PSA,Total- Diagnostic < 0.01 ng/mL (0.0-4.0); Potassium 4.1 mmol/L (3.5-5.1); Sodium Level 138 mmol/L (136-145); Thyroid Stim Hormone (TSH) 2.52 uIU/mL (0.358-3.74); Triglycerides 79 mg/dL; Very Low Density Lipoprotein 16 mg/dL (5-40)
== END | disposition home or self-care (01) ==
LOC: MTLAB 08:40
PROVIDERS: PCP Family Medicine; Referring Provider Family Medicine; Visit Provider Family Medicine
DX: C61 Malignant neoplasm of prostate (principal); E78.00 Pure hypercholesterolemia, unspecified
CPT/HCPCS: 36415; 80053; 80061; 83735; 84153; 84443

== ENCOUNTER 2023-02-07 08:10 | Emergency (ER) | payer MEDICARE, OTHER, SELFPAY ==
[2023-02-07 08:10] VITALS: BP 156/70; PULSE 98; RESP 18; TEMP 35.7; O2SAT 97; BMI 25.9
--- NOTE | 2023-02-07 08:24 | EX.ED.UPPERE ---
HPI History of Present Illness Chief Complaint: Bite Informant: patient Narrative Narrative: Here for evaluation left upper extremity for concern for tick bite. [place] in the [place] yesterday 3 hours in a tent. He washed himself this morning saw a black spot. He states his tried pulling with tweezers, he presents here. He did not notice yesterday when he used deodorant. No fevers. [facility] Medical History History of prostate cancer Hyperlipemia Hypertension Home Medications aspirin 81 mg tablet,delayed release 81 mg PO SUWE 02/05/20 [History Last Taken Unknown] atorvastatin 20 mg tablet 20 mg PO QHS 02/05/20 [History Last Taken 02/14/20 04:45 20 MG] lisinopril 10 mg-hydrochlorothiazide 12.5 mg tablet 1 tab PO DAILY 09/30/20 [History Last Taken Unknown] meclizine 25 mg tablet 25 mg PO TID PRN dizziness #20 tabs 09/30/20 [Rx Last Taken Unknown] Allergy/AdvReac Type Severity Reaction Status Date / Time amoxicillin Allergy Rash Verified 09/30/20 08:47 bee venom protein (honey bee) Allergy Hives Verified 09/30/20 08:47 lactose Allergy Diarrhea Verified 09/30/20 08:47 Sulfa (Sulfonamide Allergy PT UNSURE Verified 09/30/20 08:47 Antibiotics) OF REACTION Surgical History History of hernia repair History of prostatectomy Social History Smoking Status: Former smoker ROS ROS ED Constitutional Constitutional ED: Denies chills, fever(s) or sweats Eyes Eyes: Denies change in vision ENT ENT ED: Denies dysphagia or sore throat Cardiovascular Cardiovascular: Denies chest pain, leg edema, palpitations or racing heartbeat Respiratory/Chest Respiratory/Chest: Denies cough, dyspnea or dyspnea on exertion Gastrointestinal Gastrointestinal: Denies abdominal pain, diarrhea, nausea or vomiting Genitourinary Genitourinary ED: Denies dysuria, hematuria or urinary frequency Musculoskeletal Musculoskeletal: Denies back pain, extremity pain or neck pain Integumentary Reports wounds; Denies rash Neurologic Neurologic: Denies headache(s), paresthesias or weakness EXAM Physical Exam Const Vital Signs: 02/07/23 08:10 Temperature 96.2 F L Temperature Source Temporal Pulse Rate 98 Respiratory Rate 18 Blood Pressure 156/70 H Blood Pressure Mean 98 Pulse Ox 97 Oxygen Delivery Method Room Air Positive well nourished and well developed General Appearance ED: well developed and NAD HEENT Reports moist mucous membranes normocephalic and atraumatic Eyes PERRL, EOMs intact bilaterally and conjunctivae normal General Eye ED: Yes normal appearance of both eyes Neck no lymphadenopathy and supple General: Negative for tenderness Chest Wall Chest: Negative for tenderness Resp normal respiratory effort and normal air movement Effort and Inspection: symmetric chest movement; Negative for respiratory distress Cardio regular rate, regular rhythm and no murmurs Peripheral Pulses: pulses 2+ throughout GI normal to inspection, nondistended, normoactive bowel sounds and non-tender Palpation: Negative for guarding or rebound tenderness present Back/Spine no CVA tenderness and no thoracic nor lumbar tenderness Extremity normal to inspection General Extremety ED: Negative for edema or tenderness General Extremity: Negative for edema Neuro oriented x3 and no sensory deficits noted Sensorium / Orientation: awake and alert Skin Skin Narrative: Left upper arm posteriorly mid arm: There is a black spot right in the pore, no tick noted no remnants of tick parts. No surrounding erythema. No target lesions. MDM MDM MDM Narrative Medical decision making narrative: Interventions / MDM: Differential diagnosis: Wound evaluation Diagnosis considered but do not suspect: No remnants of tick injury My EKG interpretation: N/A Imaging independently reviewed and interpreted by myself: N/A External documents reviewed: N/A Test considered but not ordered:N/A ED course: Patient examined initially concerns for blackhead, manipulation, with scraping the black debris came off. Slight ecchymosis underneath this likely from manipulation. The skin was intact. Patient more reassured monitoring for likely ecchymosis to conform. However he is reassured. Outpatient follow as needed. All questions were answered. Re-evaluation: stable Disposition discussed with patient/family/significant other: Patient Case discussed with consulting clinician: N/A This note was generated with [employer] dictation software. It may contain incorrect words, spelling, and punctuation that were not noted in checking the note before signing. Discharge Plan Triage Chief Complaint: Bite ED Provider: Khadar Cui Dx/Rx/DC Orders Clinical Impression: History of hypertension, Encounter for evaluation of wound Instructions: ED Wound Care Prescriptions: No Action atorvastatin 20 MG tablet 20 mg PO QHS aspirin 81 MG tablet 81 mg PO SUWE lisinopril-hydrochlorothiazide 10-12.5 mg Tablet 1 tab PO DAILY meclizine 25 mg tablet 25 mg PO TID PRN (Reason: dizziness) Qty: 20 0RF Primary Care Provider: Deacon Ovalle Referrals: Deacon Ovalle MD [Primary Care Provider] - 1 Week Activity Restrictions/Additional Instructions: Skin evaluation removal of black debris. No signs of tick injury. May develop bruising with manipulation today. Continue warm soap and water cleanse. Follow-up with your doctor as needed. Disposition Disposition: Home, Self Care
== END 2023-02-07 08:42 | disposition home or self-care (01) ==
LOC: ED 08:31
PROVIDERS: Emergency Provider Emergency Medicine; PCP Family Medicine; Visit Provider Emergency Medicine
DX: Z48.00 Encounter for change or removal of nonsurgical wound dressing (principal); I10 Essential (primary) hypertension; Z87.891 Personal history of nicotine dependence; E78.5 Hyperlipidemia, unspecified
CPT/HCPCS: 99284

== ENCOUNTER → 2023-06-16 | Outpatient (CLI) | payer MEDICARE, OTHER, SELFPAY ==
[2023-06-16 15:21] LABS: Absolute Lymphocyte Count 0.79 X10^3/uL (0.83-4.51); Absolute Neutrophil Count 7.9 X10^3/uL (2.0-7.7); Basophil# 0.06 X10^3/uL; Basophil% 0.6 % (0-1); Eosinophil# 0.05 X10^3/uL; Eosinophils% 0.5 % (0-5); Hematocrit 43.1 % (40-54); Hemoglobin 14.7 g/dL (13.0-16.5); Lymphocyte # 0.79 X10^3/ul (0.83-4.51); Lymphocyte % 8.5 % (19-41); Mean Corp Hgb Conc 34.1 g/dL (32-36); Mean Corpuscular Hgb 30.9 pg (27.0-32.0); Mean Corpuscular Volume 90.5 fL (80-94); Mean Platelet Vol. 9.5 fl (6.2-12.0); Monocyte# 0.41 X10^3/uL; Monocyte% 4.4 % (0-10); NRBC Flagged by Analyzer 0 % (0-5); Neutrophil # 7.91 X10^3/uL (2.7-7.7); Neutrophil % 85.6 % (47-70); Platelet Count 314 K/mm3 (150-450); Red Blood Count 4.76 M/mm3 (4.6-6.2); White Blood Count 9.3 K/mm3 (4.4-11.0)
[2023-06-16 15:43] LABS: AST(SGOT) 14 U/L (15-37); Alanine Aminotransfer ALT/SGPT 30 U/L (16-61); Albumin, Serum 3.9 g/dL (3.2-5.0); Alkaline Phosphatase 69 U/L (45-117); Bilirubin, Direct 0.14 mg/dL (0.00-0.30); Globulin 3.3 g/dL (2.2-4.2); Protein, Total 7.2 g/dL (6.4-8.2)
== END | disposition home or self-care (01) ==
LOC: MTLAB 13:31
PROVIDERS: PCP Family Medicine; Referring Provider Dermatology; Visit Provider Dermatology
DX: D48.5 Neoplasm of uncertain behavior of skin (principal); L57.0 Actinic keratosis; B35.1 Tinea unguium; L82.1 Other seborrheic keratosis; D18.01 Hemangioma of skin and subcutaneous tissue; Z71.89 Other specified counseling; Z08 Encounter for follow-up examination after completed treatment for malignant neoplasm; Z85.820 Personal history of malignant melanoma of skin
CPT/HCPCS: 36415; 80076; 85025

== ENCOUNTER → 2023-09-05 | Outpatient (CLI) | payer MEDICARE, OTHER, SELFPAY ==
[2023-09-05 10:32] LABS: Absolute Lymphocyte Count 0.71 X10^3/uL (0.83-4.51); Absolute Neutrophil Count 3.9 X10^3/uL (2.0-7.7); Basophil# 0.05 X10^3/uL; Eosinophil# 0.08 X10^3/uL; Eosinophils% 1.5 % (0-5); Hematocrit 43.4 % (40-54); Hemoglobin 14.5 g/dL (13.0-16.5); Lymphocyte # 0.71 X10^3/ul (0.83-4.51); Lymphocyte % 13.7 % (19-41); Mean Corp Hgb Conc 33.4 g/dL (32-36); Mean Corpuscular Hgb 30.7 pg (27.0-32.0); Mean Corpuscular Volume 91.9 fL (80-94); Mean Platelet Vol. 9.2 fl (6.2-12.0); Monocyte# 0.48 X10^3/uL; Monocyte% 9.2 % (0-10); NRBC Flagged by Analyzer 0 % (0-5); Neutrophil # 3.86 X10^3/uL (2.7-7.7); Neutrophil % 74.2 % (47-70); Platelet Count 313 K/mm3 (150-450); RBC Distribution Width CV 11.9 % (11.6-14.6); RBC Distribution Width SD 40.2 fl (35.1-43.9); Red Blood Count 4.72 M/mm3 (4.6-6.2); White Blood Count 5.2 K/mm3 (4.4-11.0)
[2023-09-05 11:11] LABS: AST(SGOT) 16 U/L (15-37); Alanine Aminotransfer ALT/SGPT 23 U/L (16-61); Albumin, Serum 3.9 g/dL (3.2-5.0); Alkaline Phosphatase 68 U/L (45-117); Globulin 3.3 g/dL (2.2-4.2); Protein, Total 7.2 g/dL (6.4-8.2)
== END | disposition home or self-care (01) ==
LOC: MTLAB 08:58
PROVIDERS: PCP Family Medicine; Referring Provider Dermatology; Visit Provider Dermatology
DX: B35.1 Tinea unguium (principal)
CPT/HCPCS: 36415; 80076; 85025

== ENCOUNTER → 2024-01-09 | Outpatient (CLI) | payer MEDICARE, OTHER, SELFPAY ==
[2024-01-09 12:14] LABS: Absolute Lymphocyte Count 0.68 X10^3/uL (0.83-4.51); Absolute Neutrophil Count 4.3 X10^3/uL (2.0-7.7); Basophil# 0.07 X10^3/uL; Basophil% 1.2 % (0-1); Eosinophil# 0.04 X10^3/uL; Eosinophils% 0.7 % (0-5); Hematocrit 42.6 % (40-54); Hemoglobin 14.6 g/dL (13.0-16.5); Lymphocyte # 0.68 X10^3/ul (0.83-4.51); Lymphocyte % 12.1 % (19-41); Mean Corp Hgb Conc 34.3 g/dL (32-36); Mean Corpuscular Volume 93.4 fL (80-94); Mean Platelet Vol. 9.3 fl (6.2-12.0); Monocyte# 0.48 X10^3/uL; Monocyte% 8.5 % (0-10); NRBC Flagged by Analyzer 0 % (0-5); Neutrophil # 4.34 X10^3/uL (2.7-7.7); Platelet Count 314 K/mm3 (150-450); RBC Distribution Width CV 11.8 % (11.6-14.6); RBC Distribution Width SD 40.2 fl (35.1-43.9); Red Blood Count 4.56 M/mm3 (4.6-6.2); White Blood Count 5.6 K/mm3 (4.4-11.0)
[2024-01-09 12:36] LABS: AST(SGOT) 15 U/L (15-37); Alanine Aminotransfer ALT/SGPT 29 U/L (16-61); Albumin, Serum 3.7 g/dL (3.2-5.0); Alkaline Phosphatase 67 U/L (45-117); Bilirubin, Direct 0.15 mg/dL (0.00-0.30); Globulin 3.4 g/dL (2.2-4.2); Protein, Total 7.1 g/dL (6.4-8.2)
== END | disposition home or self-care (01) ==
LOC: MTLAB 09:21
PROVIDERS: PCP Family Medicine; Referring Provider Dermatology; Visit Provider Dermatology
DX: B35.1 Tinea unguium (principal)
CPT/HCPCS: 36415; 80076; 85025

== ENCOUNTER → 2024-02-13 | Outpatient (CLI) | payer MEDICARE, OTHER, SELFPAY ==
[2024-02-13 12:40] LABS: Anion Gap 5 (5-15); BUN 17 mg/dL (7-18); BUN/Creat Ratio 15.7 RATIO (10-20); Calcium,Total 9.5 mg/dL (8.5-10.1); Chloride 105 mmol/L (98-107); Cholesterol 134 mg/dL (200); Creatinine, Serum 1.08 mg/dL (0.70-1.30); EST Glomerular Filtration Rate 71 mL/min (>60); Est Glom Filt Rate - Afr Amer 86 mL/min (>60); Glucose 89 mg/dL (74-106); High Density Lipoprotein 54 mg/dL; Sodium Level 139 mmol/L (136-145); Triglycerides 83 mg/dL; Very Low Density Lipoprotein 17 mg/dL (5-40)
[2024-02-13 12:46] LABS: PSA,Total - Annual Screen < 0.01 ng/mL (0.00-4.00)
== END | disposition home or self-care (01) ==
PROVIDERS: PCP Family Medicine; Referring Provider Family Medicine; Visit Provider Family Medicine
DX: I10 Essential (primary) hypertension (principal); C61 Malignant neoplasm of prostate; E78.00 Pure hypercholesterolemia, unspecified; Z12.5 Encounter for screening for malignant neoplasm of prostate
CPT/HCPCS: 36415; 80048; 80061; 84153; G0103

== ENCOUNTER → 2025-02-11 | Outpatient (CLI) | payer MEDICARE, OTHER, SELFPAY ==
[2025-02-11 21:56] LABS: AST(SGOT) 20 U/L (<=37); Alanine Aminotransfer ALT/SGPT 20 U/L (<=46); Albumin, Serum 4.4 g/dL (3.4-4.8); Alkaline Phosphatase 66 U/L (40-129); Anion Gap 11 (5-15); BUN 16 mg/dL (4-19); BUN/Creat Ratio 16.8 RATIO (10-20); Calcium,Total 9.7 mg/dL (7.6-11.0); Carbon Dioxide 25.9 mmol/L (21.0-32.0); Chloride 102 mmol/L (98-108); Cholesterol 148 mg/dL (<=200); Globulin 3.0 g/dL (2.2-4.2); Glucose 88 mg/dL (70-99); Low Density Lipoprotein Calc. 86 mg/dL; Potassium 3.9 mmol/L (3.3-5.1); Triglycerides 94 mg/dL; Very Low Density Lipoprotein 19 mg/dL (5-40); cholesterol:hdl ratio screen 3.32
[2025-02-11 22:10] LABS: PSA,Total - Annual Screen < 0.02 ng/mL (0.02-4.00)
[2025-02-11 22:49] LABS: Hematocrit 44.7 % (40-54); Hemoglobin 15.3 g/dL (13.0-16.5); Mean Corp Hgb Conc 34.2 g/dL (32-36); Mean Corpuscular Volume 92.0 fL (80-94); Mean Platelet Vol. 9.5 fl (6.2-12.0); Platelet Count 318 K/mm3 (150-450); RBC Distribution Width CV 11.9 % (11.6-14.6); RBC Distribution Width SD 40.2 fl (35.1-43.9); Red Blood Count 4.86 M/mm3 (4.6-6.2); White Blood Count 5.5 K/mm3 (4.4-11.0)
== END | disposition home or self-care (01) ==
LOC: LABSPEC 15:56 → MTLAB 18:13
PROVIDERS: PCP Family Medicine; Referring Provider Nurse Practitioner; Visit Provider Nurse Practitioner
DX: Z00.00 Encounter for general adult medical examination without abnormal findings (principal); C61 Malignant neoplasm of prostate; Z12.5 Encounter for screening for malignant neoplasm of prostate; E78.00 Pure hypercholesterolemia, unspecified; I10 Essential (primary) hypertension
CPT/HCPCS: 36415; 80053; 80061; 84153; 85027; G0103